=== PATIENT | female | born 1955 | race Asian ===

== ENCOUNTER 2017-01-11 09:40 | Outpatient (CLI) | payer OTHER ==
[~2017-01-11 09:40] MED LIST: LEVO75TA7 PO; VALS1TAB2 PO
== END 2017-01-11 19:08 | disposition home or self-care (01) ==
LOC: SMA 09:40
DX: Z12.31 Encounter for screening mammogram for malignant neoplasm of breast (principal); R92.1 Mammographic calcification found on diagnostic imaging of breast
CPT/HCPCS: G0204; G0206

== ENCOUNTER 2018-02-07 08:59 | Outpatient (CLI) | payer OTHER | END 2018-02-07 20:52 | disposition home or self-care (01) | LOC: SMA 08:59 | PROVIDERS: ATTEND Family Medicine | DX: Z12.31 Encounter for screening mammogram for malignant neoplasm of breast (principal) | CPT/HCPCS: 77067 ==

== ENCOUNTER 2018-02-14 09:17 | Outpatient (CLI) | payer OTHER | END 2018-02-14 20:18 | disposition home or self-care (01) | LOC: SUS 09:17 | PROVIDERS: ATTEND Family Medicine | DX: R92.1 Mammographic calcification found on diagnostic imaging of breast (principal) | CPT/HCPCS: 76642 ==

== ENCOUNTER 2019-02-12 13:14 | Outpatient (CLI) | payer OTHER | END 2019-02-12 19:56 | disposition home or self-care (01) | LOC: SMA 13:14 | PROVIDERS: ATTEND Physician Assistant Medical | DX: R92.1 Mammographic calcification found on diagnostic imaging of breast (principal) | CPT/HCPCS: 76641; 77066 ==